=== PATIENT | female | born 1955 | race Caucasian/White ===

== ENCOUNTER → 2016-09-14 | Outpatient (CLI) | payer MEDICARE ==
[~2016-09-14] MED LIST: ABILIFY PO; ADDERALL PO; ADDERALL20 M1 PO; ALBUTEROL17 GM INH; ALPRAZOLAM PO; ALPRAZOLAM0.5 MG PO; ALPRAZOLAM1 MG PO; ASPIRIN ENTERI325 M1 PO; ASPIRIN81 M1 PO; AUGMENTIN PO; B-12250 MCG PO; CALCIUM 600 +1 EAC5 PO; CALCIUM1 TAB.CHEW PO; CELEXA; CELEXA PO; CENTRAL VITE TA1 TAB PO; CIPRO PO; CYANOCOBALAM1000 MCG PO; FERROUS SULFATE PO; FLAVOXATE PO; FLEXERIL; FLEXERIL PO; FLEXERIL10 MG PO; GABAPENTIN400 M2 PO; GENESUPP-5001 CAP PO; HYDROCHLOROTHIA25 MG PO; HYDROCODON-ACE1 EAC5 PO; IBUPROFEN800 MG PO; IRON1 TAB PO; K-DUR20 ME2 PO; LISINOPRIL PO; LISINOPRIL20 MG PO; LOVASTATIN20 M1 PO; MULTI-DAY VITAM1 TAB PO; NAPROXEN PO; NEXIUM PO; NORCO 10/325 TA1 TAB PO; OXYCODONE HCL15 MG PO; OXYCODONE15 M1 PO; OXYCONTIN30 MG PO; PERCOCET 10/3251 TAB PO; PHENERGAN PR; PROAIR HFA8.5 GM INH; PROZAC PO; SKELAXIN PO; THIAMINE HCL250 MG PO; TYLOX 5/500 CAP1 CAP PO; VITAMIN C500 M1 PO; WELLBUTRIN PO; WELLBUTRIN SR150 MG PO; XANAX2 MG PO
--- NOTE | ~2016-09-14 | MY11 ---
[facility] A Service of [facility] RADIOLOGY TEXT RESULTS PATIENT: CAILIN ARIAS LOCATION: [facility] : 53 UNIT #: [id number] AGE: [address]: Yoel Banks MD SEX: F ORDER DR: [id number] [facility] [address] [place], [place] [address] [id number] O MR#: [id number] Acc #: [id number] NAME: CAILIN ARIAS : 1955 SEX: F STUDY DATE/TIME: 09/14/2016 7:48 UNIT: [facility] ROOM: STUDY DESCRIPTION: MY Mammogram Screening [facility] [place] Attending Physician: Yoel Banks Jr., M.D. Referring Physician: Yoel Banks Jr., M.D. Ordering Physician: Yoel Banks Jr., M.D. Primary Care Physician: Yoel Banks Jr., M.D. MEDICAL IMAGING REPORT This report is preliminary unless electronic signature is present EXAM Digital screening mammogram 09/14/2016 HISTORY 60-year-old woman no risk elevation. Interim weight loss. Annual screen. COMPARISON 12/15/2002, 02/07/2007, 04/18/2013. FINDINGS Digital imaging of each breast was completed utilizing screening protocol. Review includes FDA-approved CAD device. Breast parenchyma is fatty replaced and stable. There is no interval occurring mass. There are no suspicious microcalcifications and no architectural deformity. IMPRESSION Negative mammogram. Annual screening recommended. Patients over the age of 40 are entered into a reminder system with target due date for the next mammogram. A result letter will also be sent to the patient. BIRADS: 1 Negative Dictated by... Yoel Jackson M.D. THIS IS AN ELECTRONICALLY VERIFIED REPORT Yoel Jackson M.D. at 09/14/2016 1:14 PM Dannielle TD: 09/14/2016 09:45 [facility] A Service of [facility] RADIOLOGY TEXT RESULTS PATIENT: CAILIN ARIAS LOCATION: [facility] : 53 UNIT #: [id number] AGE: [address]: Yoel Banks MD SEX: F ORDER DR: DANUTA #: [id number] MEDICAL IMAGING REPORT COPY
== END | disposition home or self-care (01) ==
LOC: CWCC 07:28
DX: Z12.31 Encounter for screening mammogram for malignant neoplasm of breast (principal)
CPT/HCPCS: G0202